=== PATIENT | male | born 1960 | race Caucasian/White ===

== ENCOUNTER → 2017-01-13 | Outpatient (CLI) | payer MEDICARE, MEDICAID, OTHER ==
[~2017-01-13] MED LIST: ABILIFY20 MG PO; ALREX 1 ML1 ML OP; ALREX 5 ML5 ML OP; FLONASE NASAL S16 GM NS; GLUCOPHAGE500 MG/TAB PO; INFANTS AQU400 IU/ML PO; KLONOPIN 0.5MG0.5 MG PO; LEXAPRO20 MG PO; MIRALAX PA17 GM/Dose PO; ROXICODONE 55 MG/TAB PO; TYLENOL 325MG325 MG PO; VITAMIN D1000 IU PO
== END ==
LOC: COL.RAD 07:41
DX: C19 Malignant neoplasm of rectosigmoid junction (principal)
CPT/HCPCS: Q9967

== ENCOUNTER 2017-07-23 09:04 | Outpatient (CLI) | payer MEDICARE, MEDICAID ==
[2017-07-23] VITALS (11 sets, daily range): BP systolic 118–185; BP diastolic 72–96; PULSE 56–78; TEMP 96.9
[~2017-07-23] VITALS: Ht 172.8 cm; Wt 128.1 kg
[~2017-07-23 09:04] MED LIST changes: -INFANTS AQU400 IU/ML PO; +MASON NATURAL2000 IU PO
[2017-07-23] MEDS ORDERED: LIPITOR20 MG PO (09:46)
[2017-07-23] MEDS ORDERED: MOBIC15 MG PO (09:46)
[2017-07-23 09:47] LABS: HEMATOCRIT 39.1 % (42.0-52.0); MEAN CELL VOLUME 93 fl (80.0-100.0); MEAN CORPUSCULAR HEMOGLOBIN 31 pg (27.0-31.0); MEAN CORPUSCULAR HGB CONC 33 g/dl (33.0-37.0); MEAN PLATELET VOLUME 10.5 fl (7.4-10.4); PLATELET COUNT 134 K/mm3 (130-400); RED BLOOD COUNT 4.19 M/mm3 (4.20-5.60); REDCELL DISTRIBUTION WIDTH-CV 13.9 % (11.5-14.5); WHITE BLOOD COUNT 4.7 K/mm3 (4.8-10.8)
[2017-07-23 09:56] LABS: PROTHROMBIN TIME 11.2 SECONDS (9.7-12.8)
[2017-07-23 09:58] LABS: CALCIUM 8.8 mg/dL (8.4-10.2); CREATININE, serum 0.86 mg/dL (0.66-1.25); POTASSIUM 4.5 mmol/L (3.4-5.0)
== END 2017-07-23 12:10 | disposition home or self-care (01) ==
LOC: COL.RAD 09:04
PROVIDERS: Internal Medicine Interventional Cardiology
DX: I08.0 Rheumatic disorders of both mitral and aortic valves (principal); I42.2 Other hypertrophic cardiomyopathy; R01.1 Cardiac murmur, unspecified
CPT/HCPCS: J2250; J3010

== ENCOUNTER → 2021-12-03 | Outpatient (CLI) | payer MEDICARE, MEDICAID ==
[~2021-12-03] MED LIST changes: +LIPITOR20 MG PO; +MOBIC15 MG PO
[2021-12-03 13:21] LABS: CALCIUM 9.1 mg/dL (8.4-10.2); CREATININE, serum 1.14 mg/dL (0.72-1.25); POTASSIUM 4.2 mmol/L (3.5-4.5)
[2021-12-03 13:28] LABS: TROPONIN-I 0.013 ng/mL (0.00-0.033)
== END ==
LOC: ZCOL.LAB 12:45
PROVIDERS: Internal Medicine Interventional Cardiology
DX: I42.2 Other hypertrophic cardiomyopathy (principal); I50.9 Heart failure, unspecified